=== PATIENT | male | born 1985 | race Caucasian/White ===

== ENCOUNTER 2022-04-12 20:58 | Emergency (ER) | payer OTHER ==
[~2022-04-12] VITALS: Ht 177.8 cm; Wt 93.0 kg
[~2022-04-12 20:58] MED LIST: ZANTAC300 MG
== END 2022-04-12 22:15 | disposition home or self-care (01) ==
LOC: ER 20:58
DX: M54.50 Low back pain, unspecified (principal)

== ENCOUNTER 2022-07-11 12:11 | Emergency (ER) | payer OTHER ==
[~2022-07-11] VITALS: Ht 175.3 cm; Wt 90.7 kg
== END 2022-07-11 17:17 | disposition home or self-care (01) ==
LOC: ER 12:11
DX: A05.9 Bacterial foodborne intoxication, unspecified (principal); Z20.822 Contact with and (suspected) exposure to COVID-19

== ENCOUNTER 2022-09-26 22:38 | Emergency (ER) | payer OTHER ==
[~2022-09-26] VITALS: Ht 175.3 cm; Wt 47.6 kg
[2022-09-27] MEDS ORDERED: KETO10TA2 PO (03:06)
== END 2022-09-27 03:11 ==
LOC: ER 22:38
DX: R07.89 Other chest pain (principal); Z87.891 Personal history of nicotine dependence; Z91.013 Allergy to seafood

== ENCOUNTER 2024-12-09 22:09 | Emergency (ER) | payer OTHER ==
[~2024-12-09] VITALS: Ht 177.8 cm; Wt 93.0 kg
[~2024-12-09 22:09] MED LIST changes: +KETO10TA2 PO; +NORFLEX100MG PO
[2024-12-09] MEDS ORDERED: KETOROLAC TROMETHAMINE 60 MG VIAL IM ONE ×2 (23:45→23:51)
[2024-12-10] MEDS ORDERED: ORPHENADRINE CITRATE 30 MG/ML AMPUL IM ONE (00:15)
[2024-12-10] MEDS ORDERED: ORPHENADRINE CITRATE 30 MG/ML AMPUL ONE (00:19)
[2024-12-10] MEDS ORDERED: NORFLEX100MG PO (02:04)
== END 2024-12-10 02:23 | disposition home or self-care (01) ==
LOC: ER 22:25
DX: G89.11 Acute pain due to trauma (principal); M54.59 Other low back pain; Z91.013 Allergy to seafood

== ENCOUNTER 2025-03-06 19:44 | Emergency (ER) | payer OTHER ==
[~2025-03-06] VITALS: Ht 177.8 cm; Wt 90.7 kg
[2025-03-06] MEDS ORDERED: KETOROLAC TROMETHAMINE 30 MG VIAL IM STA (21:04)
[2025-03-06] MEDS ORDERED: ORPHENADRINE CITRATE 30 MG/ML AMPUL IM STA (21:05)
[2025-03-06] MEDS ORDERED: KETOROLAC TROMETHAMINE 30 MG VIAL ONE (21:11)
[2025-03-06] MEDS ORDERED: ORPHENADRINE CITRATE 30 MG/ML AMPUL ONE (21:11)
== END 2025-03-06 22:21 | disposition home or self-care (01) ==
LOC: ER 19:44
DX: M54.2 Cervicalgia (principal); M54.50 Low back pain, unspecified; Z91.013 Allergy to seafood; V49.49XA Driver injured in collision with other motor vehicles in traffic accident, initial encounter; Y93.89 Activity, other specified; Y92.413 State road as the place of occurrence of the external cause